=== PATIENT | female | born 1995 | race Hispanic/Latino ===

== ENCOUNTER → 2022-02-01 16:22 | Outpatient (CLI) | payer OTHER, SELFPAY ==
[2022-02-01 18:02] LABS: Hematocrit 34.7 % (36-46); Hemoglobin 11.8 g/dL (12.0-16.0)
[2022-02-01 18:32] LABS: GTT (PREG) 1 Hour PP 50gm Dose 133 mg/dL (76-139)
== END ==
PROVIDERS: PCP Internal Medicine; Referring Provider Obstetrics & Gynecology; Visit Provider Obstetrics & Gynecology
DX: Z34.00 Encounter for supervision of normal first pregnancy, unspecified trimester (principal)
CPT/HCPCS: 36415; 82950; 85014; 85018

== ENCOUNTER 2022-02-28 21:35 | Outpatient (CLI) | payer OTHER, SELFPAY ==
--- NOTE | 2022-02-28 21:44 | DI.US.S_ITS ---
PROCEDURE: US OB LIMITED INDICATIONS: VAGINAL BLEEDING OUTSIDE/PRIOR DATING DATA: Last menstrual period (LMP): 07/31/2019. LMP-based estimated date of delivery (KOJO): 05/07/2022. TECHNIQUE: Real-time scanning including endovaginal scanning was performed of the fetus, with image documentation. COMPARISON: None. FINDINGS: A single living intrauterine gestation is present. Presentation: Vertex. Placenta: Placental position is anterior, without previa. No periplacental fluid collections. Amniotic fluid index: 7.0 cm, normal range is 5-24 cm. Single deepest vertical pocket is 4.0 cm. heart rate: 126 beats per minute. Maternal cervical canal: 3.4 cm long. Normal lower limit is 2.5 cm. Clinically estimated gestational age: 30 weeks 2 days IMPRESSION: 1. Single living intrauterine demonstrated in vertex presentation. 2. No periplacental fluid collections to suggest abruption. Dictated by: Herman Gonzalez M.D. on 02/28/2022 at 22:55 Approved by: Herman Gonzalez M.D. on 02/28/2022 at 22:56
--- NOTE | 2022-03-01 07:11 | P.TNLD_ITS ---
Visit Information Visit Information Date of evaluation: 02/28/22 Primary OB Provider: Purnima Diaz On-call OB Provider: Zully Baeza Reason for Evaluation: Yes other Comments/Additional reasons for admission: 26YO @ [id number] by LMP here for evaluation of vaginal bleeding. LUZ MARINA in to 's care from [place] @ 27wks. Had a single cramp that was sharp and painful. Went to the bathroom 30 minutes later and noticed bright red dripping blood into the toilet. Called and was encouraged to come in for evaluation from [place]. Bleeding has since stopped. No further pain. Feeling FM. Vital Signs Vital Signs: BP 115/57, HR 74, RR 18. T 97.5F Axillary PFSH Medical History Closed head injury Surgical History H/O hand surgery No pertinent past surgical history Family History Grandmother Depression Sister Depression Grandmother Thyroid disease Father Family estrangement Social History marital status: number of children: 0 household members: spouse lives independently: Yes housing: apartment pets and animals: Yes (1 large dog) education level: college (some college) occupational status: previously employed current occupational exposures/hazards: No special ally needs: No travel history: recent (domestic) seatbelt use: always water heater temp set < 120 deg: No (will check and adjust ) working smoke detector in home: Yes fire extinguisher in home: Yes carbon monox detector in home: Yes firearms in home: Yes firearms unloaded and locked: Yes do you feel safe at home: Yes Smoking Status: Former smoker second hand exposure: No alcohol intake: former (occasional social drinker when not ) substance use type: does not use during the past year weight has: remained stable well-balanced diet: daily or most days daily servings fruits/ve-4 caffeine: No Type(s) of exercise: walking frequency: daily Review of Systems Review of Systems ROS: Yes All systems reviewed with the patient and are negative except as otherwise documented Exam Vital Signs (past 8 hours): see above Presentation: vertex Objective Imaging OB >14wks limited: My impression: No perigestational bleed or abruption Radiologist's impression: Ultrasound Report Signed Patient: Tameka Tracy MR#: [id number] : 1995 Acct:[id number] Age/Sex: 26 / F Date of Service: 02/28/22 Loc: LABOR [id number] Accession Number: [id number] ?? Procedure: US OB limited Ordering Provider: Zully Baeza C.N.M. PROCEDURE:? US OB LIMITED ? INDICATIONS:? VAGINAL BLEEDING ? OUTSIDE/PRIOR DATING DATA:? Last menstrual period (LMP):? 07/31/2019. LMP-based estimated date of delivery (KOJO):? 05/07/2022.? ? TECHNIQUE: Real-time scanning including endovaginal scanning was performed of the fetus, with image documentation.? ? COMPARISON:? None. ? FINDINGS:? A single living intrauterine gestation is present.? Presentation:? Vertex.? Placenta:? Placental position is anterior, without previa.? No periplacental fluid collections. ? Amniotic fluid index:? 7.0 cm, normal range is 5-24 cm. Single deepest vertical pocket is 4.0 cm.? ? heart rate:? 126 beats per minute.? Maternal cervical canal:? 3.4 cm long.? Normal lower limit is 2.5 cm.? Clinically estimated gestational age:? 30 weeks 2 days ? IMPRESSION:? ? 1. Single living intrauterine demonstrated in vertex presentation. ? 2. No periplacental fluid collections to suggest abruption. ? ? Dictated by: Herman Gonzalez M.D. on 02/28/2022 at 22:55 ? ? Approved by: Herman Gonzalez M.D. on 02/28/2022 at 22:56 ? Evaluation Evaluation Baseline heart rate: 135 Variability: Moderate (11-25) monitor accelerations: Present Monitor Decelerations: Absent Contraction Frequency (minutes): 0 Category of Tracing: Reactive Comments: CE deferred, bleeding stopped and no contractions Diagnosis, Plan/Disposition Final Diagnosis (1) Spotting affecting in third trimester: Status: Acute Problem details: No concern for abruption Plan/Disposition Plan: Discharge to home with routine precautions. Follow-up in clinic with . OB Disposition: home
== END 2022-02-28 23:20 | disposition home or self-care (01) ==
LOC: OB 03-01 09:26
PROVIDERS: PCP Internal Medicine; Referring Provider Nurse Practitioner Obstetrics & Gynecology; Visit Provider Nurse Practitioner Obstetrics & Gynecology
DX: O26.853 Spotting complicating pregnancy, third trimester (principal); Z3A.30 30 weeks gestation of pregnancy
CPT/HCPCS: 59025; 76815; 76817; G0378; G0379

== ENCOUNTER → 2022-04-09 13:19 | Outpatient (CLI) | payer OTHER, SELFPAY ==
[2022-04-10 13:42] LABS: Strep Grp B PCR NEG for Grp B Strep
== END ==
PROVIDERS: PCP Internal Medicine; Visit Provider Obstetrics & Gynecology
DX: Z34.03 Encounter for supervision of normal first pregnancy, third trimester (principal); Z3A.36 36 weeks gestation of pregnancy
CPT/HCPCS: 87653

== ENCOUNTER 2022-04-20 22:21 | Observation (INO) | payer OTHER, SELFPAY | END 2022-04-20 23:22 | disposition home or self-care (01) | LOC: LABOR 22:23 | PROVIDERS: Admitting Provider Obstetrics & Gynecology; PCP Internal Medicine; Referring Provider Obstetrics & Gynecology; Visit Provider Obstetrics & Gynecology | DX: O47.03 False labor before 37 completed weeks of gestation, third trimester (principal); Z3A.37 37 weeks gestation of pregnancy | CPT/HCPCS: G0378; G0379 ==

== ENCOUNTER 2022-04-21 07:03 | Inpatient (IN) | payer OTHER, SELFPAY ==
[2022-04-21 08:09] VITALS: BP 107/59
--- NOTE | 2022-04-21 08:12 | PM.OBHP.1 ---
OB HPI Date/Time Date of admission: 04/21/22 Date Patient Seen: 04/21/22 Time Patient Seen: 08:12 History of Present Condition Chief complaint: obs : 1 Para: 0 Estimated Date of Delivery: 05/07/22 Estimated Gestational Age (weeks): 37+5 Narrative: Tameka Tracy is a 27 year oldPrimigravida who presents with Progressively intense uterine contractions over the last 18-24 hours and significant change in her cervical examination over the last 6-8 hour while laboring at home. Patient transferred care from [place] late in the 2nd trimester and has had good, well documented care throughout her . Dating is firm and testing to date has been normal/negative. Patient is GBS negative. Patient plans to have ILENE. Indications Other reason(s) for admission: Labor History of Present care: good care Dating criteria: LMP confirmed by 1st trimester US Ultrasounds: normal 1st trimester US and normal mid trimester US Obstetrical complications: none Medical complications: none Preadmission Labs Blood type: A (+) positive -: Antibody screen: negative, GBS status: negative, HBsAG: negative, HIV: negative and RPR/VDLR: negative -: Chlamydia screen: not detected and Gonorrhea screen: not detected -: Rubella: immune and Varicella: unknown HCT: 34.7 HCAB: negative PAP: Normal Integrated screen: Negative Quad screen: Normal 1 hr GTT: 133 Prior (ies) History: N/A Evaluation Evaluation Baseline heart rate: 125 Variability: Moderate (11-25) monitor accelerations: Present Monitor Decelerations: Absent Contraction Frequency (minutes): 7 Uterine Contraction Intensity: Moderate Category of Tracing: Reactive Status: Category l Dilation (cm): 5 Effacement (%): 80 Dilation: >/=5 cm Effacement: >/=80% station: -2 Position of cervix: mid Consistency: soft Ugarte score: 10 PFSH Surgical History Anesthesia Closed head injury (~05/2001) Collar bone fracture (~05/2001) H/O hand surgery (~09/2004) No pertinent past surgical history Family History Grandmother Depression Sister Depression Grandmother Thyroid disease Father Family estrangement Social History marital status: number of children: 0 household members: spouse lives independently: Yes housing: apartment pets and animals: Yes (1 large dog) education level: college (some college) occupational status: previously employed current occupational exposures/hazards: No special ally needs: No travel history: recent (domestic) seatbelt use: always water heater temp set < 120 deg: No (will check and adjust ) working smoke detector in home: Yes fire extinguisher in home: Yes carbon monox detector in home: Yes firearms in home: Yes firearms unloaded and locked: Yes do you feel safe at home: Yes Smoking Status: Former smoker second hand exposure: No alcohol intake: former (occasional social drinker when not ) substance use type: does not use during the past year weight has: remained stable well-balanced diet: daily or most days daily servings fruits/ve-4 caffeine: No Type(s) of exercise: walking frequency: daily Meds Home Medications and Allergies Home Medications Medication Instructions Recorded Confirmed Type ferrous sulfate 324 mg (65 mg 324 mg PO DAILY 01/29/22 04/16/22 History iron) tablet,delayed release prenat.vits,cameron,[id number] 1 tab PO DAILY 01/29/22 04/16/22 History Allergies Allergy/AdvReac Type Severity Reaction Status Date / Time No Known Allergies Allergy Verified 04/16/22 11:42 Review of Systems Review of Systems Narrative: Problem-specific ROS positives included in HPI OB Exam HENMT Head: normal to inspection, normocephalic and atraumatic Eyes General: appearance normal, both eyes and all related structures Resp Effort & Inspection: normal respiratory effort and able to speak in complete sentences Auscultation: clear to auscultation bilaterally Cardio Rate: regular rate Rhythm: regular rhythm Heart Sounds: S1 normal, S2 normal and no murmurs Extremities Lower extremity: Yes normal to inspection GI Inspection: normal to inspection Palpation: Yes soft and Yes no hepatosplenomegaly Uterus Location (Fundal Height): 37 Presentation: vertex Estimated Weight (lbs): 8 Assessment and Plan Assessment and Plan Assessment and Plan narrative: ASSESSMENT 1. Intrauterine , Pina, 37+ 5 weeks gestational age, vertex 2. Labor, spontaneous PLAN 1. Admit for delivery 2. See admission orders 3. OK for ILENE when requested
[2022-04-21] MEDS: LACTATED RINGERS 1,000 ML 100 ML IV ×2 (08:52→17:50)
[2022-04-21 09:59] LABS: Add Manual Diff / Slide Review NO; Basophils Absolute Auto 0 /uL (0-100); Basophils Percent Auto 0.1 % (0-2); Eosinophils Absolute Auto 0 /uL (0-450); Hematocrit 34.4 % (36-46); Hemoglobin 11.7 g/dL (12.0-16.0); Lymphocytes Absolute Auto 900 /uL (1100-4500); Lymphocytes Percent Auto 6.5 % (25-40); Mean Corpuscular HGB Conc 33.9 % (30-36); Mean Corpuscular Hemoglobin 28.4 PG (26-34); Mean Corpuscular Volume 83.7 fL (80-100); Monocytes Absolute Auto 300 /uL (0-900); Monocytes Percent Auto 2.3 % (3-14); Neutrophils Absolute Auto 12700 /uL (1500-7000); Neutrophils Percent Auto 91.1 % (50-75); Platelet Count 213 X10^3/uL (150-400); Red Blood Cell Count 4.11 X10^6/uL (4.0-5.2); Red Cell Distribution Width 14.6 % (11.6-14.8); White Blood Cell Count 13.9 X10^3/uL (4.5-11.0)
[2022-04-21] MEDS: FENT 2MCG/ML BUPIV 0.125% EPI 200 MCG/100 ML PLAST..BAG 2 MCG EPIDURAL (10:50)
[2022-04-21] MEDS: OXYTOCIN PREMIX 30 UNIT/500 ML PLAST..BAG IV (12:15)
--- NOTE | 2022-04-21 12:52 | PM.OBPNLAB ---
Date/Time Date Patient Seen: 04/21/22 Time Patient Seen: 12:52 Pain Control Pain control: epidural Pelvic Exam Dilation (cm): 8 Effacement (%): 100 station: 0 Amniotic membrane status: Bulging Contractions Contractions on admission: regular Monitor mode: External Pitocin rate (mU/min): 2 Contraction frequency (min): 5 Contraction pattern: Irregular Contraction intensity: Strong/Firm Status status: Category l Heart Rate Baseline: 135 Monitor Accelerations: Present Monitor Decelerations: Absent Monitor Variability: Moderate Assessment and Plan Assessment: active labor Comments: AROM with copious blood-tinged amniotic fluid Titrate Pitocin to contractions every 3 minute Expected management to spontaneous vaginal delivery
[2022-04-21 14:01] LABS: COVID19 -Nasal RAPID Negative (Negative)
--- NOTE | 2022-04-21 14:30 | PM.OBPNLAB ---
Date/Time Date Patient Seen: 04/21/22 Time Patient Seen: 14:30 Pain Control Pain control: tolerating well and epidural Pelvic Exam Dilation (cm): 9 Effacement (%): 100 station: +1 Amniotic membrane status: Ruptured Comments: Puffy anterior lip reduced. Direct OP. Contractions Monitor mode: External Pitocin rate (mU/min): 4 Contraction frequency (min): 4 Contraction duration (min): 1 Contraction pattern: Irregular Contraction phase: Resting Contraction intensity: Strong/Firm Status status: Category l Monitor Accelerations: Present Monitor Decelerations: Variable Monitor Variability: Moderate Assessment and Plan Assessment: induction ongoing Plan: continuous present management
[2022-04-21] MEDS: FENT 2MCG/ML BUPIV 0.125% EPI 200 MCG/100 ML PLAST..BAG 8 MCG EPIDURAL (17:42)
--- NOTE | 2022-04-21 19:10 | PM.OBPRVD ---
Labor & Delivery Delivery date: 04/21/22 Intrapartal Events: Hypotonic Dysfunction Cervical ripening method: none Induction method: none Delivery augmentation: rupture of membranes and pitocin Delivery monitor: external FHT and external uterine Route of delivery: and vacuum extraction (Vacuum assist to rotation and descent) Indication for instrumentation: maternal exhaustion Episiotomy description: None L&D Laceration Description: Perineal - 2nd Degree Delivery repair: chromic Estimated blood loss (mL): 175 Anesthesia Type: Epidural Complications: None Narrative: After more than 2 hours of pushing with the infant in ROP presentation, the vacuum extractor ([employer] OmniCup) was applied at +2 station and the infant was gently brought down to the perineum with 3 pulls and no pop loss, pressures never exceeding 550 mg mercury. At +2-3 station the rotated clockwise to direct OA and the vacuum released. The infant was then delivered spontaneously over an intact perineum and noted to have a tight nuchal cord upon delivery. No shoulder dystocia was encountered and the cord was reduced once the body of the had been delivered. Skin to skin contact was initiated immediately and the infant was vigorous with stimulation. Delayed cord clamping was performed and after 90 seconds, cord was doubly clamped and cut by the father. A cord blood sample was obtained for routine studies. With gentle traction on the umbilical cord, an intact placenta was delivered and careful inspection firm the intact nature the placenta. IV Pitocin was initiated immediately and bleeding was minimal. Inspection of the perineum showed a superficial second-degree perineal laceration which was closed with 2-0 chromic in the usual manner and 2 additional small [id number] stitches of 3-0 chromic for complete hemostasis. Delivery process was then terminated with both the mother and doing well. [place] Baby 1: gender: Male Presentation: vertex Position: Left Occiput Anterior Placenta delivery description: Spontaneous Cord Vessel Description: 3 Vessels score (1 min): 9 score (5 min): 9 weight: 6 lb 3.367 oz Plan for aftercare: Routine care
[2022-04-21] MEDS: ACETAMINOPHEN 325 MG TABLET 650 MG PO (21:05)
[2022-04-21] MEDS: IBUPROFEN 600 MG TABLET PO (21:06)
[2022-04-21] MEDS: DOCUSATE 100 MG CAPSULE PO (21:06)
[2022-04-21] MEDS: DERMOPLAST SPRAY 20% 60 ML 1 SPRAY TOP (21:06)
[2022-04-22] MEDS: ACETAMINOPHEN 325 MG TABLET 650 MG PO ×3 (03:12→18:14)
[2022-04-22] MEDS: IBUPROFEN 600 MG TABLET PO ×3 (03:12→18:14)
[2022-04-22 05:57] LABS: Add Manual Diff / Slide Review NO; Basophils Absolute Auto 0 /uL (0-100); Basophils Percent Auto 0.2 % (0-2); Eosinophils Absolute Auto 0 /uL (0-450); Eosinophils Percent Auto 0.1 % (2-4); Hematocrit 29.2 % (36-46); Hemoglobin 9.9 g/dL (12.0-16.0); Lymphocytes Absolute Auto 2300 /uL (1100-4500); Lymphocytes Percent Auto 14.3 % (25-40); Mean Corpuscular HGB Conc 33.9 % (30-36); Mean Corpuscular Hemoglobin 28.3 PG (26-34); Mean Corpuscular Volume 83.3 fL (80-100); Monocytes Absolute Auto 1000 /uL (0-900); Monocytes Percent Auto 6.1 % (3-14); Neutrophils Absolute Auto 12900 /uL (1500-7000); Neutrophils Percent Auto 79.3 % (50-75); Platelet Count 167 X10^3/uL (150-400); Red Cell Distribution Width 14.5 % (11.6-14.8); White Blood Cell Count 16.2 X10^3/uL (4.5-11.0)
[2022-04-22] MEDS: DOCUSATE 100 MG CAPSULE PO (09:13)
--- NOTE | 2022-04-22 12:16 | P.PNOB_ITS ---
Subjective - OB Subjective Patient comments: no complaints and pain well controlled Josephine baby status: doing well Josephine feeding status: exclusively breast feeding Date Patient Seen: 04/22/22 Time Patient Seen: 12:16 Interval history: Doing well, having no ongoing issues. Patient is experiencing some early challenges with and will stay overnight to have support from staff and sap solution manager consultant as needed. Exam Const General: cooperative and comfortable Nutritional Appearance: average body habitus Orientation: alert and oriented x3 HENMT Head: normal to inspection, atraumatic and abrasion Ears: hearing grossly normal bilaterally Face and sinus: face symmetric Eyes General: appearance normal, both eyes and all related structures Conjunctivae: conjunctivae normal Sclera: sclerae normal EOM: EOM intact bilaterally Neck Neck: normal visual inspection Resp Effort & Inspection: normal respiratory effort and able to speak in complete sentences GI Inspection: normal to inspection Palpation: soft and no hepatosplenomegaly External Female Exam: other (No significant bleeding noted) OB/External & Speculum: other (Laceration repair intact with minimal bruising, edema) Extrem General: no calf tenderness Psych Appearance: grossly normal Mental Status: mental status grossly normal Speech and Movement: speech and movement normal Mood: congruent mood Affect: normal affect Attitude: cooperative Thought Process: normal Thought Content: normal Judgment: judgment good Objective Labs Result Diagrams: 04/22/22 05:37 Labs: Laboratory Results - last 24 hr 04/21/22 04/22/22 13:20 05:37 WBC 16.2 H RBC 3.50 L Hgb 9.9 L Hct 29.2 L MCV 83.3 MCH 28.3 MCHC 33.9 RDW 14.5 Plt Count 167 Neut % (Auto) 79.3 H Lymph % (Auto) 14.3 L [place] % (Auto) 6.1 Eos % (Auto) 0.1 L Baso % (Auto) 0.2 Neut # (Auto) 74323 H Lymph # (Auto) 2300 [place] # (Auto) 1000 H Eos # (Auto) 0 Baso # (Auto) 0 SARS-CoV-2 (PCR) Negative Assessment & Plan Plan day: 1 plan OB: routine care Comments: Anticipate discharge, a.m. 04/23/2022 Time Spent With Patient Time: Total time spent is greater than 50% in coordination of care (as documented) at patient's floor/unit and/or counseling patient: Time with patient: less than 15 minutes
[2022-04-23] MEDS: IBUPROFEN 600 MG TABLET PO ×3 (00:51→14:29)
[2022-04-23] MEDS: ACETAMINOPHEN 325 MG TABLET 650 MG PO ×2 (00:51→14:29)
[2022-04-23] MEDS: DOCUSATE 100 MG CAPSULE PO ×2 (00:52→08:42)
--- NOTE | 2022-04-23 07:44 | P.DS_ITS ---
History of Present Illness History of Present Illness Date Patient Seen: 04/23/22 Time Patient Seen: 07:55 Chief complaint: maternity Discharge Providers Provider Date of admission: 04/21/22 07:03 Discharge Date: 04/23/22 Primary care physician: Fareed High MD Consults: 04/21/22 08:11 Consult to Anesthesiology Urgent Comment: Consulting Provider: Boris Brooks Reason for consultation: ILENE placement in labor Has provider been notified: No 04/22/22 19:08 Consult to [employer] Routine Comment: Discharge provider: Purnima Diaz MD Summary Hospital Course Discharge Diagnosis: 37 week , delivered Hospital Course: ?27 year old G0 presented in labor with progressively intense uterine contractions and significant change in her cervical examination. She was admitted in labor at 37 weeks.? Patient transferred care from [place] late in the 2nd trimester and has had good, well documented care throughout her .? Dating is firm and testing had been normal/negative.? She was GBS negative.? She progressed in labor. After pushing for 2 hours, she had a vacuum assisted vaginal delivery for maternal exhaustion. With descent of the vertex, at 2 to 3+ station, the baby was then rotated from OP to OA. She had delivery a male infant weighing 6 lb 3 oz with Apgars of 9 and 9. She had spontaneous delivery of the placenta. She had repair of a 2nd degree perineal laceration. She has had a normal course. Her lochia has remained normal. Her perineal discomfort is controlled with ibuprofen and Tylenol. Her blood pressures has remained normal. She is voiding without problems. Baby is doing well. Baby was having some difficulty latching yesterday but is doing better. Status at Discharge Cognitive/behavioral status at discharge: oriented and at baseline, oriented Functional status at discharge: independent ambulation Overall status at discharge: patient is progressing back to baseline Time Spent with Patient Time spent: Less than 30 minutes Exam Vital Signs (past 8 hours): Temp 98.3F, BP 103/53, Pulse 72, RR 17 Narrative Exam Narrative: General: ?Well-appearing female Abdomen: ?Soft, nontender, nondistended. ?Fundus @ umbilicus, firm, nontender Extremities: ?No pedal edema Objective Labs Result Diagrams: 04/22/22 05:37 [facility] Surgical History Anesthesia Closed head injury (~05/2001) Collar bone fracture (~05/2001) H/O hand surgery (~09/2004) No pertinent past surgical history Family History Grandmother Depression Sister Depression Grandmother Thyroid disease Father Family estrangement Social History marital status: number of children: 0 household members: spouse lives independently: Yes housing: apartment pets and animals: Yes (1 large dog) education level: college (some college) occupational status: previously employed current occupational exposures/hazards: No special ally needs: No travel history: recent (domestic) seatbelt use: always water heater temp set < 120 deg: No (will check and adjust ) working smoke detector in home: Yes fire extinguisher in home: Yes carbon monox detector in home: Yes firearms in home: Yes firearms unloaded and locked: Yes do you feel safe at home: Yes Smoking Status: Never smoker second hand exposure: No alcohol intake: former (occasional social drinker when not ) substance use type: does not use during the past year weight has: remained stable well-balanced diet: daily or most days daily servings fruits/ve-4 caffeine: No Type(s) of exercise: walking frequency: daily Discharge Assessment & Plan Assessment and Plan Assessment: day 2, status post vacuum assisted vaginal delivery, doing well Plan of Treatment: Discharge home. Follow-up for routine visit 6 weeks, call earlier as needed. She will use ibuprofen and Tylenol for perineal discomfort. instructions and precautions reviewed. Discharge Plan Discharge Plan Patient Disposition: Home Provider Discharge Comment: Congratulations on the of your son! Please review the written instructions provided when you were discharged from the hospital. Your follow-up appointment will be scheduled for 6 weeks following your delivery. If in the meanwhile howevere you ahve any issues, problems, or questions, please contact the office at [phone] or via the patient portal. Discharge orders & Medications Prescriptions: Continued prenat.vits,cameron,[id number] Tablet 1 tab PO DAILY ferrous sulfate 324 mg (65 mg iron) tablet,delayed release (DR/EC) 324 mg PO DAILY Follow up/Referrals: Purnima Diaz MD [Physician] - 06/06/22 10:00 am Fareed High MD [Primary Care Provider] - Discharge Health Status Multidrug resistant organism: No MDRO Diet/Activity/Treatments Diet: Diet as Tolerated Activity: As tolerated Other treatments: Over the counter Tylenol may also be used for additional pain relief Skin/Wound/Dressing Care Report to your healthcare provider any signs of infection, such as:: chills, fever, increased pain, unusual drainage and unusual redness Dressing: N/A Visit Report/Discharge Packet Instructions: DI for Labor and Delivery, Vaginal , DI for and Nipple Soreness Discharge Data Primary Care Provider: Fareed High
[2022-04-23 11:20] VITALS: BP 110/64; PULSE 77; RESP 20; TEMP 36.7
== END 2022-04-23 16:10 | disposition home or self-care (01) | DRG 807 ==
PROVIDERS: Admitting Provider Obstetrics & Gynecology; PCP Internal Medicine; Referring Provider Obstetrics & Gynecology; Visit Provider Obstetrics & Gynecology
DX: O75.81 Maternal exhaustion complicating labor and delivery (principal); Z37.0 Single live birth; O70.1 Second degree perineal laceration during delivery; Z3A.37 37 weeks gestation of pregnancy; O62.4 Hypertonic, incoordinate, and prolonged uterine contractions; Z20.822 Contact with and (suspected) exposure to COVID-19
CPT/HCPCS: 01967; 36415; 59025; 59050; 59410; 85025; 86850; 86900; 86901; 87635; C9803; G0379; J2590

== ENCOUNTER → 2022-07-10 09:25 | Outpatient (CLI) | payer OTHER, SELFPAY ==
--- NOTE | 2022-07-10 09:26 | DI.US.S_ITS ---
ULTRASOUND OF RIGHT BREAST AND AXILLA: 07/10/2022 CLINICAL: Palpable right breast lump. Currently brst feeding. No prior exams were available for comparison. Real-time ultrasound of the right breast axilla was performed. Soares scale images of the real-time examination were reviewed. No significant abnormalities were seen sonographically in the right breast. IMPRESSION: NEGATIVE There is no sonographic evidence of malignancy. There is no abnormality seen in the right breast to correspond with the area of clinical concern and palpable abnormality in the lower outer quadrant, however, recommend clinical follow up for persistent or worsening symptoms, or development of any clinically suspicious findings. Findings and recommendations were conveyed to the patient during today's evaluation. This exam was interpreted at Station ID: [id number]. Electronically Signed By: David Turpin M.D. at/:07/10/2022 09:51:55 letter sent: Clinical Evaluation Ultrasound BI-RADS: 1 Negative
== END ==
PROVIDERS: PCP Internal Medicine; Referring Provider Obstetrics & Gynecology; Visit Provider Obstetrics & Gynecology
DX: N63.13 Unspecified lump in the right breast, lower outer quadrant (principal)
CPT/HCPCS: 76642

== ENCOUNTER → 2023-06-21 09:21 | Outpatient (CLI) | payer OTHER, SELFPAY ==
--- NOTE | 2023-06-21 09:22 | DI.US.S_ITS ---
PROCEDURE: US OB <= 14 WEEKS FETUS INDICATIONS: Dating and viability OUTSIDE/PRIOR DATING DATA: Last menstrual period (LMP): 04/06/2023. LMP-based estimated date of delivery (KOJO): 01/11/2024. First dating scan (date and location): 06/21/2023. Estimated date of delivery (KOJO) from first dating scan: 01/11/2024. The calculations are made using the working KOJO of 01/11/2024. TECHNIQUE: Real-time scanning was performed of the fetus and maternal pelvic organs, with image documentation. Endovaginal scanning was also performed to better visualize the fetus and maternal ovaries. COMPARISON: None. FINDINGS: Embryo: [place]-rump length 4.0 cm corresponds with a 10 week 6 day gestation. Small subchorionic bleed measures 2.8 x 2.4 x 0.8 cm. Heart rate: 160 beats per minute Maternal organs: Anterior uterine fibroid measures 1.7 x 1.8 x 1.4 cm IMPRESSION: Single live intrauterine corresponds with a 10 week 6 day gestation Small perigestational bleed measures 2.8 x 0.8 cm Approved by: Jose Nieto M.D. on 06/21/2023 at 12:17
== END ==
LOC: US 09:22
PROVIDERS: PCP Internal Medicine; Referring Provider Family Medicine; Visit Provider Family Medicine
DX: O46.8X1 Other antepartum hemorrhage, first trimester (principal); Z3A.10 10 weeks gestation of pregnancy
CPT/HCPCS: 76801

== ENCOUNTER → 2023-07-02 09:23 | Outpatient (CLI) | payer OTHER, SELFPAY ==
[2023-07-02 10:08] LABS: Appearance Urine UA CLEAR; Bilirubin Urine UA NEGATIVE (NEGATIVE); Color Urine UA YELLOW; Glucose Urine UA NEGATIVE (Negative); Ketones Urine UA NEGATIVE (NEGATIVE); Leukocyte Esterase Urine UA NEGATIVE (NEGATIVE); Nitrite Urine UA NEGATIVE (Negative); Occult Blood Urine UA NEGATIVE (Negative); Protein Urine UA NEGATIVE (Negative); Specific Gravity Urine UA 1.025 (1.000-1.035); Urobilinogen Urine UA 0.2 E.U./dL (0.2)
[2023-07-02 10:14] LABS: pH Urine UA 6.5 (4.5-8.0)
[2023-07-02 10:15] LABS: Add Manual Diff / Slide Review NO; Basophils Absolute Auto 0 /uL (0-100); Basophils Percent Auto 0.6 % (0-2); Eosinophils Absolute Auto 100 /uL (0-450); Eosinophils Percent Auto 1.2 % (2-4); Hematocrit 37.4 % (36-46); Hemoglobin 12.6 g/dL (12.0-16.0); Lymphocytes Absolute Auto 1600 /uL (1100-4500); Lymphocytes Percent Auto 24.6 % (25-40); Mean Corpuscular HGB Conc 33.7 % (30-36); Mean Corpuscular Hemoglobin 28.7 PG (26-34); Monocytes Absolute Auto 300 /uL (0-900); Monocytes Percent Auto 4.6 % (3-14); Neutrophils Absolute Auto 4400 /uL (1500-7000); Platelet Count 247 X10^3/uL (150-400); Red Cell Distribution Width 13.9 % (11.6-14.8); White Blood Cell Count 6.3 X10^3/uL (4.5-11.0)
[2023-07-02 20:41] LABS: Hepatitis B Surface Antigen NEGATIVE s/c (NEGATIVE); Rubella Antibody IgG 37.3 IU/mL (>15)
[2023-07-02 21:01] LABS: HIV 1 & 2 Ab/Ag 4th Gen Combo NEGATIVE (NEGATIVE); Hep C Virus Ab w/Reflex Quant NEGATIVE s/c (NEGATIVE)
[2023-07-03 08:30] LABS: Varicella IgG Antibody 770 index (Immune >165)
[2023-07-04 06:11] LABS: RPR Screen Non Reactive (Non Reactive)
== END ==
LOC: LAB 09:24
PROVIDERS: PCP Internal Medicine; Referring Provider Family Medicine; Visit Provider Family Medicine
DX: Z34.80 Encounter for supervision of other normal pregnancy, unspecified trimester (principal)
CPT/HCPCS: 36415; 80055; 81003; 86787; 86803; 86850; 86900; 86901; 87086; 87389

== ENCOUNTER 2023-07-08 10:39 | Emergency (ER) | payer OTHER, SELFPAY ==
[2023-07-08 10:46] VITALS: BP 110/56; PULSE 64; RESP 18; TEMP 36.4; O2SAT 97; BMI 25.0
--- NOTE | 2023-07-08 11:08 | ED_ITS ---
HPI - Skin/Abscess/Foreign Bdy <Eri Jim PA-C - Last Filed: 07/08/23 15:39> General Chief complaint: Skin/Abscess/Foreign Body Stated complaint: irritation both under arms/neck Time Seen by Provider: 07/08/23 11:05 Source: patient Mode of arrival: Ambulatory History of Present Illness HPI narrative: 28-year-old female at 13 weeks' gestation with 7 day history of pruritic rash of bilateral armpits. Reports itching worse at night. Patient reports no recent environmental exposure to anything unknown, no changes to detergent or deodorant, no new medications. Denies fever, chills, crusted lesions, no we eping, no purulent discharge, no open areas of skin. Related Data Home Medications Medication Instructions Recorded Confirmed prenat.vits,cameron,[id number] 1 tab PO DAILY 01/29/22 07/01/23 Previous Rx's Medication Instructions Recorded clotrimazole 1 % topical cream 1 applic topical BID Urticaria, 07/08/23 topical yeast infection of skin 2 weeks #30 grams Allergies Allergy/AdvReac Type Severity Reaction Status Date / Time No Known Allergies Allergy Verified 07/01/23 10:28 Review of Systems <Eri Jim PA-C - Last Filed: 07/08/23 15:39> Constitutional Constitutional: Denies chills, Denies fatigue, Denies fever(s), Denies frequent falls, Denies lethargy and Denies weakness Eyes Eyes: Denies change in vision, Denies eye discharge, Denies irritation and Denies loss of vision ENT Ears, Nose, Mouth, and Throat: Denies change in voice, Denies dizziness, Denies neck pain, Denies sore throat and Denies throat swelling Cardiovascular Cardiovascular: Denies chest pain, Denies irregular heart rhythm, Denies lightheadedness, Denies palpitations, Denies dyspnea, Denies dyspnea on exertion and Denies orthopnea Respiratory Respiratory: Denies cough, Denies dyspnea, Denies dyspnea on exertion and Denies wheezing Gastrointestinal Gastrointestinal: Denies abdominal pain, Denies change in bowel habits, Denies diarrhea, Denies nausea and Denies vomiting Musculoskeletal Musculoskeletal: Denies neck pain and Denies numbness Integumentary/Breasts Skin/Breast: Reports pruritus, Reports erythema, Denies rash and Denies wounds Comments: Bilateral armpit pruritic erythematous rash Neurologic Neurologic: Denies behavioral changes, Denies confusion, Denies dizziness, Denies frequent falls, Denies loss of vision, Denies numbness and Denies weakness Psychiatric Psychiatric: Denies anxiety, Denies behavioral changes, Denies confusion, Denies depression, Denies homicidal ideation and Denies suicidal ideation Endocrine Endocrine: Denies fatigue, Denies flushing and Denies palpitations Hematologic/Lymphatic Hematologic/Lymphatic: Denies easy bruising Allergic/Immunologic Allergic/Immunologic: Denies urticaria, Denies throat swelling and Denies wheezing Patient History <Eri Jim PA-C - Last Filed: 07/08/23 15:39> Medical History (Updated 07/08/23 @ 12:45 by Eri Jim PA-C) Acute anal fissure Breast lump on right side at 7 o'clock position Spotting affecting in third trimester Surgical History (Updated 06/19/23 @ 09:03 by Estrellita Donnelly RN) Anesthesia Collar bone fracture (~05/2001) H/O hand surgery (~09/2004) Closed head injury (~05/2001) Family History Grandmother Depression Sister Depression Grandmother Thyroid disease Father Family estrangement Social History marital status: number of children: 1 household members: spouse and children lives independently: Yes caregiver/support person: Yes housing: apartment pets and animals: Yes (1 large dog) education level: college occupational status: unemployed current occupational exposures/hazards: No special ally needs: No travel history: over 6 months ago seatbelt use: always water heater temp set < 120 deg: Yes working smoke detector in home: Yes fire extinguisher in home: Yes carbon monox detector in home: Yes firearms in home: Yes firearms unloaded and locked: Yes do you feel safe at home: Yes Smoking Status: Never smoker second hand exposure: No alcohol intake: former substance use type: does not use during the past year weight has: other well-balanced diet: rarely or never daily servings fruits/ve-1 caffeine: No Type(s) of exercise: walking and weight lifting frequency: daily Smoking Status: Never smoker Substance Use Type: does not use Exam <Eri Jim PA-C - Last Filed: 07/08/23 15:39> Initial Vital Signs Initial Vital Signs: Vital Signs Temperature 97.6 F 07/08/23 10:46 Pulse Rate 64 07/08/23 10:46 Respiratory Rate 18 07/08/23 10:46 Blood Pressure 110/56 L 07/08/23 10:46 Pulse Oximetry 97 07/08/23 10:46 Oxygen Delivery Method Room Air 07/08/23 10:46 PHYSICAL EXAM: GEN:? Cooperative healthy appearing. NAD. HEENMT: Head:? normocephalic, atraumatic Ears:? Hearing grossly normal bilaterally. Eyes:? Normal appearance. non-edematous, no icterus bilaterally. Nose:? External nose normal. Face:? Face symmetric. Mouth:? Oral mucosae normal. Throat:? Posterior oropharynx normal. SKIN: Warm, pink. Beefy, erythematous rash bilateral armpits. No open areas of skin, nor discharge. NECK: Normal visual inspection. No nuchal rigidity. LUNGS:? No audible wheezes heard. CARDIO:? Extremities non-edematous. NEURO: Alert and oriented x 3. No focal deficits. Moving all extremities with appropriate strength. <Catarino Wiggins MD - Last Filed: 07/09/23 12:51> Initial Vital Signs Initial Vital Signs: Vital Signs Temperature 97.6 F 07/08/23 10:46 Pulse Rate 64 07/08/23 10:46 Respiratory Rate 18 07/08/23 10:46 Blood Pressure 110/56 L 07/08/23 10:46 Pulse Oximetry 97 07/08/23 10:46 Oxygen Delivery Method Room Air 07/08/23 10:46 Course <Eri Jim PA-C - Last Filed: 07/08/23 15:39> Vital Signs Vital signs: Vital Signs - 8 hr 07/08/23 10:46 Temperature 97.6 F Pulse Rate 64 Respiratory Rate 18 Blood Pressure 110/56 L Pulse Oximetry 97 Oxygen Delivery Method Room Air <Catarino Wiggins MD - Last Filed: 07/09/23 12:51> Vital Signs Vital signs: Vital Signs - 8 hr 07/08/23 10:46 Temperature 97.6 F Pulse Rate 64 Respiratory Rate 18 Blood Pressure 110/56 L Pulse Oximetry 97 Oxygen Delivery Method Room Air MDM - Skin/Abscess/Foreign Bdy <Eri Jim PA-C - Last Filed: 07/08/23 15:39> MDM Narrative Medical decision making narrative: 28-year-old female at 13 weeks' gestation with 7 day history of pruritic rash of bilateral armpits. Differential includes pruritic rash versus contact dermatitis versus yeast infection. On exam beefy red rash under arms. No skin breakdown. Findings consistent with diagnosis of Geena. Patient discharged home with a prescription for clotrimazole 1% cream. Plan of care discussed with patient and ER precautions given. Discussed with patient if rash persists to follow-up with PCP or discuss with OBGYN for further safe medication recommendations. Patient given ER precautions patient states understanding and is in agreement with plan. Medical records reviewed. Discharge Plan Departure Patient Disposition: Home Clinical Impression: Skin yeast infection Instructions: DI for Yeast Infection-Skin Activity Restrictions/Additional Instructions: You were evaluated today in the emergency department for armpit rash with finding of a yeast infection. You were prescribed clotrimazole cream. Please take as prescribed. Your prescription was sent to the [facility] in [place]. Please follow-up with your PCP or OBGYN, should symptoms worsen. If any concerning signs or symptoms such as acute infection, fevers, purulent discharge please return to ED. Thank you for allowing us to be involved in your care. Feel better soon! Prescriptions: New clotrimazole 1 % cream 1 applic topical BID 14 Days Qty: 30 0RF No Action prenat.vits,cameron,[id number] Tablet 1 tab PO DAILY Referrals: Fareed High MD [Primary Care Provider] - Stand Alone Forms: Patient Portal/API ED Sign-out <Catarino Wiggins MD - Last Filed: 07/09/23 12:51> Cosign ED Attending Cosignature Attestation: I was immediately available in the department for consultation. Documentation has been reviewed. I agree with assessment and plan.
--- NOTE | 2023-07-08 11:23 | PC.NURSE ---
Patient comes to the ED today with 7 days of bilateral armpit irritation; both armpits are red, swollen and very itchy per patient. She has stopped wearing deodorant for 5 days and states she hasn't changed her detergents or any other substance that she's aware of.
== END 2023-07-08 12:51 | disposition home or self-care (01) ==
PROVIDERS: Emergency Provider Physician Assistant Surgical; PCP Internal Medicine
DX: B37.2 Candidiasis of skin and nail (principal)
CPT/HCPCS: 99281

== ENCOUNTER → 2023-08-05 14:53 | Outpatient (CLI) | payer OTHER, SELFPAY ==
[2023-08-08 21:07] LABS: Inhibin A, Dimeric 86.76 pg/mL (.); Inhibin A, MoM 0.58 (.); Maternal Ethnicity Other (.); Maternal Weight 152 lbs (.); Number of Fetuses No (.); OSBR Risk 1 IN 10000 (.); Results Report (.); Test Results *Screen Negative* (.); hCG, Serum 19556 mIU/mL (.)
== END ==
PROVIDERS: PCP Internal Medicine; Referring Provider Family Medicine; Visit Provider Family Medicine
DX: Z34.80 Encounter for supervision of other normal pregnancy, unspecified trimester (principal)
CPT/HCPCS: 36415; 82105; 82677; 84702; 86336

== ENCOUNTER → 2023-08-22 08:10 | Outpatient (CLI) | payer OTHER, SELFPAY ==
--- NOTE | 2023-08-22 08:11 | DI.US.S_ITS ---
PROCEDURE: US OB >= 14 WEEKS FETUS INDICATIONS: ANATOMY OUTSIDE/PRIOR DATING DATA: Last menstrual period (LMP): 04/06/2023. LMP-based estimated date of delivery (KOJO): 01/11/2024. First dating scan (date and location): 06/21/2023. Estimated date of delivery (KOJO) from first dating scan: 01/11/2024. The calculations are made using the clinical KOJO of 01/11/2024. TECHNIQUE: Real-time scanning was performed of the fetus, with image documentation and biometric measurements. Endovaginal scanning: Not performed COMPARISON: None. FINDINGS: General: A single living intrauterine gestation is present. Presentation: Breech. Placenta: Placental position is posterior , without previa. Amniotic fluid index: 18.3 cm, normal range is 5-24 cm. Single deepest vertical pocket is 5.6 cm. heart rate: 160 beats per minute. Maternal cervical canal: 5.2 cm long. Normal lower limit is 2.5 cm. biometrics: Biparietal diameter: 4.5 centimeters, 19 weeks 5 days Head circumference: 16.7 centimeters, 19 weeks 2 days Abdominal circumference: 14.1 centimeters, 19 weeks 4 days Femur length: 3.1 centimeters, 19 weeks 4 days Clinically estimated gestational age: 19 weeks 5 days Composite gestational age from present scan: 19 weeks 4 days Estimated weight and percentile: 297 grams, 34th Anatomic survey: Neuro: Ventricles are non-dilated at less than 10 mm. Cisterna magna is normal at 3-11 mm. Cerebellum is normal in size and morphology. Nuchal skin fold: Normal at less than 6 mm between 14-21 weeks gestational age. Face: Nose and lips, facial profile are normal. Spine: No evidence for spina bifida. Heart: 4-chambered heart is present, with normal ventricular outflow tracts. Diaphragm: Diaphragm is intact. Stomach: Left-sided stomach is present. Kidneys: No hydronephrosis. Normal is less than 5 mm in 2nd trimester, less than 7 mm in 3rd trimester. Cord: 3-vessel cord has orthotopic insertion. Bladder: Normal in size. Extremities: All 4 extremities identified. Other: Suspected maternal fibroid along the anterior margin measuring 3.5 x 2.2 centimeter. IMPRESSION: Single living intrauterine at 19 weeks 5 days, KOJO of 01/11/2024. Estimated weight of 297 grams, 34th percentile. Normal anatomy survey. We strive to produce accurate, complete, and clear reports of imaging services. To assist us in improving patient care, this report was composed using standard report templates and voice recognition software. Therefore, it may contain abnormal punctuation, insertions and/or omissions. Occasional wrong-word or sound-alike substitutions may occur. Though we review the report and make efforts to correct it, we do recommend that the report be read carefully in proper context to recognize any text inaccuracies. Dictated by: Carlos Enrique Villalta M.D. on 08/22/2023 at 16:29 Approved by: Carlos Enrique Villalta M.D. on 08/22/2023 at 16:32
== END ==
LOC: US 08:10
PROVIDERS: PCP Internal Medicine; Referring Provider Family Medicine; Visit Provider Family Medicine
DX: Z34.82 Encounter for supervision of other normal pregnancy, second trimester (principal); Z3A.19 19 weeks gestation of pregnancy
CPT/HCPCS: 76811

== ENCOUNTER → 2023-09-30 08:35 | Outpatient (CLI) | payer OTHER, SELFPAY ==
[2023-09-30 10:44] LABS: Add Manual Diff / Slide Review NO; Basophils Absolute Auto 0 /uL (0-100); Basophils Percent Auto 0.3 % (0-2); Eosinophils Absolute Auto 0 /uL (0-450); Eosinophils Percent Auto 0.3 % (2-4); Hematocrit 36.5 % (36-46); Hemoglobin 12.1 g/dL (12.0-16.0); Lymphocytes Absolute Auto 1700 /uL (1100-4500); Lymphocytes Percent Auto 18.8 % (25-40); Mean Corpuscular HGB Conc 33.2 % (30-36); Mean Corpuscular Hemoglobin 28.8 PG (26-34); Mean Corpuscular Volume 86.9 fL (80-100); Monocytes Absolute Auto 400 /uL (0-900); Monocytes Percent Auto 4.1 % (3-14); Neutrophils Absolute Auto 6800 /uL (1500-7000); Neutrophils Percent Auto 76.5 % (50-75); Platelet Count 256 X10^3/uL (150-400); Red Blood Cell Count 4.21 X10^6/uL (4.0-5.2); White Blood Cell Count 8.9 X10^3/uL (4.5-11.0)
[2023-09-30 11:04] LABS: GTT (PREG) 1 Hour PP 50gm Dose 121 mg/dL (76-139)
== END ==
PROVIDERS: PCP Internal Medicine; Referring Provider Family Medicine; Visit Provider Family Medicine
DX: Z34.80 Encounter for supervision of other normal pregnancy, unspecified trimester (principal)
CPT/HCPCS: 36415; 82950; 85025

== ENCOUNTER → 2023-12-13 15:14 | Outpatient (CLI) | payer OTHER, SELFPAY ==
[2023-12-14 22:06] LABS: Strep Grp B PCR NEG for Grp B Strep
== END ==
PROVIDERS: PCP Internal Medicine; Visit Provider Family Medicine
DX: Z34.80 Encounter for supervision of other normal pregnancy, unspecified trimester (principal)
CPT/HCPCS: 87653

== ENCOUNTER 2024-01-02 16:54 | Inpatient (IN) | payer OTHER, SELFPAY ==
--- NOTE | 2024-01-02 17:59 | PM.OBHP.1 ---
OB HPI Date/Time Date of admission: 01/02/24 Date Patient Seen: 01/02/24 Time Patient Seen: 17:33 History of Present Condition Chief complaint: CERVIX CHECK : 3 Para: 1 Estimated Date of Delivery: 01/11/24 Estimated Gestational Age (weeks): 38w5d Narrative: Tameka Tracy is a 28 year old presenting wtih increasing contraction frequency. She started tony last night and was seen at [facility] where she was 2cm on arrival but progressed to 4cm then seems to stall out. During the day she has continued to contract and has returned to care for repeat labor rule out. On arrival SVE is 5cm. has been uncomplicated. She is GBS negative. History of Present care: good care Dating criteria: LMP confirmed by 1st trimester US Obstetrical complications: none Medical complications: none Preadmission Labs Blood type: A (+) positive -: Antibody screen: negative, GBS status: negative, HBsAG: negative, HIV: negative and RPR/VDLR: negative -: Chlamydia screen: not detected and Gonorrhea screen: not detected -: Rubella: immune and Varicella: immune HCT: 12.5 HCAB: negative Quad screen: Normal 1 hr GTT: 121 Prior (ies) History: 2020- first trimester SAB 2021- at 37wks, 6lbs 3oz Evaluation Evaluation Baseline heart rate: 130 Variability: Moderate (11-25) monitor accelerations: Present Monitor Decelerations: Absent Contraction Frequency (minutes): 6 Category of Tracing: Reactive Status: Category l Dilation (cm): 5 Effacement (%): 85 Dilation: >/=5 cm Effacement: >/=80% station: 0 PFSH Medical History (Updated 07/23/23 @ 00:00 by ) Acute anal fissure Breast lump on right side at 7 o'clock position Spotting affecting in third trimester Surgical History (Updated 06/19/23 @ 09:03 by Estrellita Donnelly RN) Anesthesia Collar bone fracture (~05/2001) H/O hand surgery (~09/2004) Closed head injury (~05/2001) Family History Grandmother Depression Sister Depression Grandmother Thyroid disease Father Family estrangement Social History marital status: number of children: 1 household members: spouse and children lives independently: Yes caregiver/support person: Yes housing: apartment pets and animals: Yes (1 large dog) education level: college occupational status: unemployed current occupational exposures/hazards: No special ally needs: No travel history: over 6 months ago seatbelt use: always water heater temp set < 120 deg: Yes working smoke detector in home: Yes fire extinguisher in home: Yes carbon monox detector in home: Yes firearms in home: Yes firearms unloaded and locked: Yes do you feel safe at home: Yes Smoking Status: Never smoker second hand exposure: No alcohol intake: former substance use type: does not use during the past year weight has: other well-balanced diet: rarely or never daily servings fruits/ve-1 caffeine: No Type(s) of exercise: walking and weight lifting frequency: daily Meds Home Medications and Allergies Home Medications Medication Instructions Recorded Confirmed Type prenat.vits,cameron,[id number] 1 tab PO DAILY 01/29/22 12/27/23 History Allergies Allergy/AdvReac Type Severity Reaction Status Date / Time No Known Allergies Allergy Verified 12/27/23 14:45 Review of Systems Review of Systems Narrative: + contractions - LOF - VB OB Exam Narrative Exam Narrative: GEN: Healthy appearing, well-developed, NAD. PSYCH: Good Judgment. AOx3. Normal memory, mood, and affect HEENT: -Head: NC/AT -Eyes: No discharge or redness CV: warm and well perfused LUNGS: breathing comfortably on RA ABD: gravid SKIN: Warm, well perfused. No skin rashes or abnormal lesions MSK: Normal gait. No deformities NEURO: Ambulating with no limitations. No focal deficits Assessment and Plan Assessment and Plan Assessment and Plan narrative: 28 year old presenting wtih increasing contraction frequency. Plan to admit to LD for epidural as epidural is highly desired. After comfortable with epidural will consider AROM. At this time, FHT reactive and reassuring. - admit to LD - intermittent monitoring - anesthesia consult - CBC now - PRN meds available for sleep and pain - blood type A+ - GBS negative Time-Based Coding :: [TOTAL MINUTES] spent with patient and on the chart (including review of chart, obtaining history, exam, reviewing outside data, placing orders, documenting exam and treatment plan, and counseling patient) on [DATE].
[2024-01-02 18:13] LABS: Add Manual Diff / Slide Review NO; Basophils Absolute Auto 0 /uL (0-100); Basophils Percent Auto 0.4 % (0-2); Eosinophils Absolute Auto 0 /uL (0-450); Eosinophils Percent Auto 0.1 % (2-4); Hematocrit 36.6 % (36-46); Hemoglobin 12.5 g/dL (12.0-16.0); Lymphocytes Absolute Auto 1800 /uL (1100-4500); Lymphocytes Percent Auto 19.2 % (25-40); Mean Corpuscular Hemoglobin 28.8 PG (26-34); Mean Corpuscular Volume 84.8 fL (80-100); Monocytes Absolute Auto 500 /uL (0-900); Monocytes Percent Auto 5.9 % (3-14); Neutrophils Absolute Auto 6900 /uL (1500-7000); Neutrophils Percent Auto 74.4 % (50-75); Platelet Count 195 X10^3/uL (150-400); Red Blood Cell Count 4.32 X10^6/uL (4.0-5.2); Red Cell Distribution Width 13.9 % (11.6-14.8); White Blood Cell Count 9.3 X10^3/uL (4.5-11.0)
--- NOTE | 2024-01-02 18:57 | PM.AN.REGBLK ---
Regional Block <Gema Guerra CRNA - Last Filed: 01/02/24 20:23> Pre-procedure Procedure: Continuous Lumbar Epidural for L&D Attending OB provider: Mar Yarbrough PMH/ROS narrative: requesting ILENE. Hx: No personal or family history of anesthesia problems. PSH/Anesthesia history narrative: See pre-anesthesia eval. Exam narrative: See pre-anesthesia eval. ASA Class: II Labs: Hct 36.6 % (36-46) 01/02/24 17:50 Plt Count 195 X10^3/uL (150-400) 01/02/24 17:50 Medications: Current Medications Generic Name Dose Route Start Last Admin Trade Name Freq PRN Reason Stop Dose Admin Acetaminophen 650 mg 01/02/24 18:01 Acetaminophen 325 Mg Tablet PO Q4HR PRN Fever/Mild Pain (1-3) Lactated Ringer's 1,000 mls @ 100 mls/hr 01/02/24 18:15 Lactated Ringers IV CONT STEPHANIE Oxytocin/Lactated Ringer's 30 unit in 500 mls @ 1 mls/hr 01/02/24 18:15 Oxytocin Premix IV TITRATE STEPHANIE Protocol 1 MILLIUNIT/MIN Morphine Sulfate 2 mg 01/02/24 18:01 Morphine 2 Mg/Ml Inj IV Q4HR PRN Pain, Moderate (4-6) Ondansetron HCl 4 mg 01/02/24 18:01 Ondansetron 4 Mg/2 Ml Inj IV Q4HR PRN Nausea And Vomiting Zolpidem Tartrate 5 mg 01/02/24 17:59 Zolpidem 5 Mg Tablet PO BEDTIME PRN Sleep Allergies: Allergies Allergy/AdvReac Type Severity Reaction Status Date / Time No Known Allergies Allergy Verified 12/27/23 14:45 Procedure Insertion date: 01/02/24 Insertion time: 18:39 Prep/Local: 1% lidocaine (5mL to L3/L4 interspace. Chlorhexidine skin prep.) Interspace: L3/L4 Patient position: sitting Needle: 18 gauge Hustead Loss of resistance with: saline ROSALES at (cm): 8 Catheter placed at SKIN (cm): 13 Catheter in SPACE (cm): 5 Insertion: No CSF, No Blood, No Paresthesia with insertion, No Paresthesia with injection and No Test dose reaction Initial Medications TEST DOSE time: 18:43 TEST DOSE: 1.5% lidocaine with epinephrine 1:200k (mL): 3 BOLUS DOSE time: 18:43 BOLUS DOSE (mL): 5 BOLUS DOSE med: 0.125% bupivacaine with fentanyl 10 mcg/mL Infusion INFUSION: 0.125% bupivacaine and with fentanyl 2 mcg/mL Initial rate (mL/hr): 10 Subsequent interventions: 1912: Checked in on patient before heading out of the facility. Pain improved, can still feel pressure from contractions but described it as shorter and much less intense. Bolus of 5mL 2% lidocaine given. 2004: Responded for request for evaluation of patient due to patient reporting numbness in upper extremities. Per my request RN had turned pump off while in route to patient. Upon reporting to the room patient's two most recent systolic BP readings were in the 80's, accompanied by nausea. RN treating nausea with zofran, Ephedrine 20mg IV given with return of BP to baseline. Physical exam revealed full sensation to BLE, with decreased perception to temperature (sympathetic block to the T2 level). Pt able to identify location of pin prick sensation at the L3 level, so pump was restarted at 10mL/hr. Pt stated she gave herself a bolus using her PCEA moments after I had given her the bolus dose around 0915. Informed this was likely the cause of the sympathectomy at a higher level than desired. Educated on using the button only when feeling pain, not pressure alone. She is agreeable. 2020: Nausea improved. Hemodynamically stable. Comfortable. <Andreea Neal DO - Last Filed: 01/03/24 18:39> Post-procedure Anesthesia date START: 01/02/24 Anesthesia time START: 18:35 Anesthesia date END: 01/03/24 Anesthesia time END: 16:54 Post-procedure Anesthesia Assessment: Yes CV function: HR/BP stable, Yes Resp function: RR/sat/airway adequate, Yes Post-op hydration adequate, Yes Pain control adequate, Yes Nausea & vomiting absent, Yes Temperature > 36 C, Yes Mental status appropriate and No Anesthesia complications (Moving to C/S 16:55; pt has been pushing for >2 hours with no progress. KAIDEN)
[2024-01-02] MEDS: ONDANSETRON 4 MG/2 ML INJ IV (20:07)
[2024-01-03] MEDS: LACTATED RINGERS 1,000 ML 100 ML IV ×4 (00:33→20:08)
[2024-01-03] MEDS: FENT 2MCG/ML BUPIV 0.125% EPI 200 MCG/100 ML PLAST..BAG 10 MCG EPIDURAL ×3 (00:33→14:14)
--- NOTE | 2024-01-03 06:15 | PM.OBPNLAB ---
Date/Time Date Patient Seen: 01/03/24 Time Patient Seen: 06:01 Pain Control Pain control: tolerating well and epidural Comments: AROM performed of bulging forebag at 05:55. clear fluid. head well engaged. Epidural working well. Tolerating labor, good leg movement through epidural Pelvic Exam Dilation (cm): 9.5 Effacement (%): 90 station: 0 Amniotic membrane status: Ruptured Contractions Contractions on admission: regular Monitor mode: External Contraction frequency (min): 3 Contraction duration (min): 1 Contraction pattern: Regular Status status: Category l Heart Rate Baseline: 130 Monitor Accelerations: Present Monitor Decelerations: Absent Monitor Variability: Moderate Assessment and Plan Assessment: active labor Plan: continuous present management Comments: 28 year old presenting wtih increasing contraction frequency. SROm overnight but on check this AM, bulging forebag noted so suspect high rupture. AROM of forebag completed with clear fluid. FHT reassuring following ROM. SVE with anterior lip, all on patients right side, will try position changes - continue expectant management - GBS neg, no ppx needed - cephalic position confirme don US at admission on 01/02 - epidural in place
[2024-01-03] MEDS: ONDANSETRON 4 MG/2 ML INJ IV (06:55)
[2024-01-03 06:58] VITALS: BP 127/68
[2024-01-03] MEDS: LORATADINE 10 MG TABLET PO (07:52)
--- NOTE | 2024-01-03 11:04 | PM.OBPNLAB ---
Date/Time Date Patient Seen: 01/03/24 Time Patient Seen: 11:04 Pain Control Pain control: tolerating well Pelvic Exam Dilation (cm): 9 Effacement (%): 90 station: 0 Amniotic membrane status: Ruptured Contractions Contractions on admission: regular Monitor mode: External Contraction frequency (min): 3 Contraction pattern: Regular Status status: Category l Heart Rate Baseline: 120 Monitor Accelerations: Present Monitor Decelerations: Absent Monitor Variability: Moderate Assessment and Plan Assessment: active labor Comments: 28 year old presenting wtih increasing contraction frequency. SROM overnight but on check this AM, bulging forebag this Am with AROM, clear fluid. Cervix now feeling swollen anteriorly. Adjusted peter balloon with deflation to ensure in correct place. IUPC placed to measure contractions strength, will start pitocin. - Start Pitocin 2mu/min - GBS neg, no ppx needed - cephalic position confirmed on US at admission on 01/02 - epidural in place
[2024-01-03] MEDS: OXYTOCIN PREMIX 30 UNIT/500 ML PLAST..BAG IV (11:05)
[2024-01-03] MEDS: CALCIUM CARBONATE 500 MG TAB PO (13:05)
--- NOTE | 2024-01-03 16:41 | PM.OBPNLAB ---
Date/Time Date Patient Seen: 01/03/24 Time Patient Seen: 16:42 Pain Control Pain control: tolerating well and epidural Pelvic Exam Dilation (cm): 10 Effacement (%): 90 station: 0 Amniotic membrane status: Ruptured Contractions Contractions on admission: regular Monitor mode: External Contraction frequency (min): 3 Contraction pattern: Regular Status status: Category l Heart Rate Baseline: 120 Monitor Accelerations: Absent Monitor Decelerations: Late (2 late decels, otherwise none ) Monitor Variability: Moderate Assessment and Plan Assessment: other () Comments: 28 year old presenting with increasing contraction frequency. She has progressed in labor with expectant management. She has been complete and pushing for nearly 3 hours. She has had minimal descent and is still at 0 station. We discussed CS due to arrest of descent and failure to progress and pt agrees to proceed. Consent for signed - Ancef 2g given for surgical ppx - Azithromycin given for ROM - Plan for hand from below during delivery due to risk of head impaction
[2024-01-03] MEDS: AZITHROMYCIN 500 MG in DEXTROSE 5% IN WATER 250 ML 250 MG IV (17:04)
[2024-01-03] MEDS: CEFAZOLIN 2 GM/100 ML PREMIX 100 ML IV (17:08)
[2024-01-03] MEDS: TRANEXAMIC ACID 1,000 MG VIAL (17:28)
--- NOTE | 2024-01-03 17:33 | SUR.OPER ---
Supine on Padded OR bed, head on pillow, safety belt at thigh, arms secured on padded arm boards at <90 degrees abduction. Bump under right buttock. Legs uncrossed with pillow under knees, gel pad to heels, tape over blanket to lower legs.
[2024-01-03] MEDS: ACETAMINOPHEN IV 1,000 MG/100 ML VIAL 400 MG IV (17:45)
[2024-01-03] MEDS: LACTATED RINGERS 1,000 ML 999 ML IV (18:00)
--- NOTE | 2024-01-03 18:08 | SUR.OPER ---
Viable baby girl born at 1723 via .
[2024-01-03 18:30] VITALS: BP 101/74; PULSE 74; RESP 14; TEMP 36.6; O2SAT 99
[2024-01-03 18:35] VITALS: BP 101/74; PULSE 71; RESP 14; O2SAT 98
[2024-01-03] MEDS: KETOROLAC 30 MG/ML VIAL IV (18:41)
--- NOTE | 2024-01-03 19:11 | P.OP_ITS ---
Operative Date/Time/Diagnoses Date of procedure: 01/03/24 Time of procedure: 17:20 Pre-op diagnosis: Arrest of descent Post-op diagnosis: same Procedure & Clinicians Procedure: ?DELIVERY NOTE NAME: Tameka Tracy :???1995 DATE OF SURGERY: 01/03/24 PREOP DIAGNOSES: Intrauterine at 38w6d Arrest of descent Failure to progress POSTOPERATIVE DIAGNOSES: Same S/p primary LTCS PROCEDURE: Primary LTCS SURGEON: Dr.?Elke Zenon MD 1st LIME KILN WORKER: Dr. Geri Canseco MD 2nd LIME KILN WORKER: Feli Porter MS3 ANESTHESIA: Epidural Estimated Blood loss: 800mL FINDINGS: Viable female infant in direct occiput anterior position, nml fallopian tubes, uterus and ovaries SPECIMENS/PATH: none INDICATION:? Patient is a 28 yo F admitted with YAYA. She progressed in labor and achieved full dilation. Sghe had SROM with clear fluid and progressed to 9.5cm on the morning on 01/02. She moved slowly and by the afternoon she achieved full cervical dialtion. After 3 hours of pushing with adequate contractions by IUPC and minimal descent, decision made to move to CS. OPERATIVE COURSE:? The patient was taken to the operating room with IV running. She was prepared and draped in the normal sterile fashion in the dorsal supine position with a leftward tilt. Vaginal prep was performed due to ROM prior to CS. Epidural anesthesia was found to be adequate after rebolus. ?? A Pfannenstiel skin incision was then made with the scalpel and carried through to the underlying layer of fascia with the scalpel.?Subcutaneous tissue layer was bluntly dissected medial to lateral.??The fascial incision was extended bluntly by pulling cephalocaudal. Rectus muscles were bluntly. Peritoneum was opened bluntly. The bladder blade was then inserted.? The lo cation of the bladder was inspected. The demarcation between the lower and upper uterine segments was determined. Decision was made to create a bladder flap due to concern for extensions with a thin lower uterine segment and possible impacted head. The vesicouterine peritoneum was identified, grasped with pick-ups and entered sharply with the Metzenbaum scissors. The incision was then extended laterally and the bladder flap created digitally. A low transverse incision was made on the uterus with the scalpel. The uterine incision was then bluntly extended laterally by pulling cephalocaudal. Membranes were ruptured and fluid was clear The bladder blade was removed. Infant was noted to be cephalic. Head was flexed out of direct OP position and delivered atraumatically. The nose and mouth were suctioned with bulb suction and the cord was clamped and cut. The infant was handed off to the waiting food and drug inspector for examination. APGARS were 8 and 9 at one and five minutes respectively. Time of was 17:23. The placenta was then delivered via gentle traction. The uterus was then exteriorized and cleared of all clots and debris. The uterine incision was repaired with 0 Vicryl in a running, locked fashion. A second layer of the same suture was used to imbricate. During closure, bleeding was noted to slightly higher than anticipated so 1g TXA was given. The uterus was replaced and hemostasis of the incision was ensured. The peritoneum was then loosely closed with 2-0 chromic. The fascia was reapproximated with vicryl in a running fashion. Wound was cleaned with a moist lap. The subcutaneous tissue was reapproximated with 3-0 Monocryl. The skin was closed with 3-0 Monocryl. STeristrips and aquasil dressing were applied. ?? The patient tolerated the procedure well.The patient was taken to the recovery room in stable condition.? SPONGE AND NEEDLE COUNTS: Correct x3. DRESSING: Aquasil dressing + steristrips ANTICOAGULATION: SCD's applied prior to Surgery - YES PREOP ANTIBIOTICS GIVEN: Ancef + Azithromycin DISPOSITION: The patient was taken to recovery room having tolerated procedure well. Same procedure as scheduled: Yes Indications: Arrest of descent Surgeon: Mar Yarbrough Click Yes if Unassisted: No Check Out Clerk: Geri Canseco Reason for Check Out Clerk: A skilled executive chef assistant was necessary for retraction, suturing and improved visualization. Anesthesia Type: Epidural Operative Notes Closure Type: primary Intraoperative meds administered: Duramorph, Pitocin and Tranexamic acid Applied: Catheter Estimated Blood Loss (mL): 800 Blood products transfused: none Complications: none Baby 1: Gender: Female Presentation: vertex Position: Occiput Posterior Placental Delivery Description: Expressed Cord Vessel Description: 3 Vessels score (1 min): 8 score (5 min): 9 Post-operative Condition: stable Disposition: PACU Aftercare: routine postop
[2024-01-03] MEDS: LANOLIN OINT 7 GM 1 APPLIC TOP (22:07)
[2024-01-03 22:08] VITALS: TEMP 36.3
[2024-01-03] MEDS: ACETAMINOPHEN 325 MG TABLET 650 MG PO (22:08)
[2024-01-04 00:34] VITALS: TEMP 36.5
[2024-01-04] MEDS: KETOROLAC 30 MG/ML VIAL IV ×2 (00:34→07:15)
[2024-01-04] MEDS: ACETAMINOPHEN 325 MG TABLET 650 MG PO ×4 (05:23→23:48)
--- NOTE | 2024-01-04 08:55 | PM.OBPN.1 ---
Subjective - OB Subjective Patient comments: pain well controlled and tolerating diet [place] baby status: doing well and nursing well feeding status: exclusively breast feeding Date Patient Seen: 01/04/24 Time Patient Seen: 08:35 Interval history: 28 yo F now POD 1 following primary LTCS for arrest of descent. She is doing well today. Pain well controlled. She has had some vaginal bleeding but appropriate. Breast feeding well, good milk letdown. She is voiding Exam Vital Signs (past 8 hours): Oxygen Delivery Method Room Air Narrative Exam Narrative: GEN: Healthy appearing, well-developed, NAD. PSYCH: Good Judgment. AOx3. Normal memory, mood, and affect HEENT: -Head: NC/AT -Eyes: No discharge or redness -Ears: External ears are normal. -Nose: Normal nares. -Mouth and throat: MMM CV: warm and well perfused, RRR LUNGS: CTAB ABD: fundus firm SKIN: Warm, well perfused. No skin rashes or abnormal lesions MSK: No deformities NEURO: No focal deficits Objective Labs 01/02/24 17:50 Assessment & Plan Plan day: 1 plan OB: routine postop care Comments: 28 yo now POD 1 following primary LTCS for arrest of descent. She is doing well - routine PP care - well - Tylenol and toradol scheduled through today, then ibuprofen after 24 hours - PRN oxy for breakthrough pain - voiding and ambulating without difficulty - plan for dc tomorrow
[2024-01-04] MEDS: PRENATAL VIT,CALC/IRON/FOLIC 1 TABLET 1 TAB PO (10:16)
[2024-01-04 10:33] LABS: Add Manual Diff / Slide Review NO; Basophils Absolute Auto 0 /uL (0-100); Basophils Percent Auto 0.1 % (0-2); Eosinophils Absolute Auto 0 /uL (0-450); Hematocrit 27.3 % (36-46); Hemoglobin 9.2 g/dL (12.0-16.0); Lymphocytes Absolute Auto 1800 /uL (1100-4500); Lymphocytes Percent Auto 9.3 % (25-40); Mean Corpuscular HGB Conc 33.8 % (30-36); Mean Corpuscular Volume 85.8 fL (80-100); Monocytes Absolute Auto 1200 /uL (0-900); Monocytes Percent Auto 5.9 % (3-14); Neutrophils Absolute Auto 16600 /uL (1500-7000); Neutrophils Percent Auto 84.7 % (50-75); Platelet Count 181 X10^3/uL (150-400); Red Blood Cell Count 3.18 X10^6/uL (4.0-5.2); Red Cell Distribution Width 14.3 % (11.6-14.8); White Blood Cell Count 19.6 X10^3/uL (4.5-11.0)
[2024-01-04] MEDS: IBUPROFEN 600 MG TABLET PO ×2 (13:16→19:30)
[2024-01-05] MEDS: IBUPROFEN 600 MG TABLET PO ×2 (01:32→07:38)
[2024-01-05] MEDS: ACETAMINOPHEN 325 MG TABLET 650 MG PO ×2 (05:30→11:54)
[2024-01-05 05:56] LABS: Add Manual Diff / Slide Review NO; Basophils Absolute Auto 0 /uL (0-100); Basophils Percent Auto 0.2 % (0-2); Eosinophils Absolute Auto 100 /uL (0-450); Eosinophils Percent Auto 0.5 % (2-4); Hematocrit 26.6 % (36-46); Hemoglobin 8.9 g/dL (12.0-16.0); Lymphocytes Absolute Auto 2800 /uL (1100-4500); Lymphocytes Percent Auto 18.3 % (25-40); Mean Corpuscular HGB Conc 33.4 % (30-36); Mean Corpuscular Hemoglobin 28.9 PG (26-34); Mean Corpuscular Volume 86.6 fL (80-100); Monocytes Absolute Auto 700 /uL (0-900); Monocytes Percent Auto 4.9 % (3-14); Neutrophils Absolute Auto 11600 /uL (1500-7000); Neutrophils Percent Auto 76.1 % (50-75); Platelet Count 174 X10^3/uL (150-400); Red Blood Cell Count 3.07 X10^6/uL (4.0-5.2); Red Cell Distribution Width 14.4 % (11.6-14.8); White Blood Cell Count 15.2 X10^3/uL (4.5-11.0)
[2024-01-05] MEDS: PRENATAL VIT,CALC/IRON/FOLIC 1 TABLET 1 TAB PO (07:38)
--- NOTE | 2024-01-05 09:30 | P.DS_ITS ---
Discharge Providers Provider Date of admission: 01/02/24 16:54 Discharge Date: 01/05/24 Primary care physician: Fareed High MD Consults: 01/03/24 18:59 Consult to Direct Mail Coordinator Routine Comment: Discharge provider: Alicia Oconnor MD Summary Hospital Course Date Patient Seen: 01/05/24 Hospital Course: Tameka Tracy is a 28 year old [id number] who presented with increasing contraction frequency. uncomplicated. Progressed to complete and pushed for 3 hours without descent. Underwent PCS which was uncomplicated. Hospitalization was uncomplicated. Voiding, ambulating and passing gas. Pain controlled with APAP and Ibu. Lochia WNL. Time Spent with Patient Time attestation: Total time spent providing and/or coordinating discharge services: Time spent: Less than 30 minutes Objective Labs 01/05/24 05:39 Labs: Laboratory Results - last 24 hr 01/04/24 01/05/24 10:00 05:39 WBC 19.6 H D 15.2 H RBC 3.18 L 3.07 L Hgb 9.2 L 8.9 L Hct 27.3 L 26.6 L MCV 85.8 86.6 MCH 29.0 28.9 MCHC 33.8 33.4 RDW 14.3 14.4 Plt Count 181 174 Neut % (Auto) 84.7 H 76.1 H Lymph % (Auto) 9.3 L 18.3 L [place] % (Auto) 5.9 4.9 Eos % (Auto) 0.0 L 0.5 L Baso % (Auto) 0.1 0.2 Neut # (Auto) 38471 H 50369 H Lymph # (Auto) 1800 2800 [place] # (Auto) 1200 H 700 Eos # (Auto) 0 100 Baso # (Auto) 0 0 Exam Vital Signs (past 8 hours): Oxygen Delivery Method Room Air Psych Other: GEN: NAD, well appearing, pleasant CV: RRR Pulm:normal WOB, CTAB Abd: fundus firm below U, incision with scant dried blood on dressing Skin: no visible rashes, WWP Psych: normal affect Neuro: normal gait, symmetric movement Discharge Plan Discharge Plan Patient Disposition: Home Discharge orders & Medications Prescriptions: New oxycodone 5 mg capsule 5 mg PO Q6H PRN (Reason: pain) Qty: 20 0RF Continued prenat.vits,cameron,[id number] Tablet 1 tab PO DAILY Follow up/Referrals: Mar Yarbrough MD [Physician] - (1 week incision check w/ Dr. Hdez:) Visit Report/Discharge Packet Instructions: DI for Stand Alone Forms: Discharge: Care, Patient Portal/API, Stroke Signs & Symptoms Discharge Data Primary Care Provider: Fareed High Attending Provider: Mar Yarbrough Admit Date/Time: 01/02/24 16:54
[2024-01-05 10:50] VITALS: BP 118/63; PULSE 74; RESP 16; TEMP 36.7
[2024-01-05] MEDS: OXYCODONE IR 5 MG TABLET PO (11:55)
== END 2024-01-05 15:23 | disposition home or self-care (01) | DRG 788 ==
PROVIDERS: Admitting Provider Family Medicine; PCP Internal Medicine; Referring Provider Family Medicine; Visit Provider Family Medicine
PROC: 10D00Z1 Extraction of Products of Conception, Low, Open Approach (ICD-10-PCS; CPT 59514; principal; 2024-01-03 17:00)
DX: O64.8XX0 Obstructed labor due to other malposition and malpresentation, not applicable or unspecified (principal); O76 Abnormality in fetal heart rate and rhythm complicating labor and delivery; Z3A.38 38 weeks gestation of pregnancy; Z37.0 Single live birth
CPT/HCPCS: 36415; 59050; 85025; G0378; G0379; J0136; J0690; J1100; J1885; J2274; J2405; J2590; J3010